=== PATIENT | male | born 1960 | race Caucasian/White ===

== ENCOUNTER → 2018-04-30 | Outpatient (CLI) | payer MEDICAID | LOC: MHCPAIN 09:37 | DX: G89.29 Other chronic pain (principal); M47.817 Spondylosis without myelopathy or radiculopathy, lumbosacral region; M54.16 Radiculopathy, lumbar region; M53.3 Sacrococcygeal disorders, not elsewhere classified | CPT/HCPCS: G0463 ==

== ENCOUNTER → 2018-05-20 | Outpatient (CLI) | payer MEDICAID | LOC: MHCPAIN 12:30 | DX: M47.817 Spondylosis without myelopathy or radiculopathy, lumbosacral region (principal); M51.37 Other intervertebral disc degeneration, lumbosacral region | CPT/HCPCS: J1040; Q9967 ==

== ENCOUNTER → 2019-06-29 | Outpatient (CLI) | payer MEDICARE, MEDICAID | LOC: COL.PUL 06-06 10:00 | DX: J44.9 Chronic obstructive pulmonary disease, unspecified (principal); Z87.891 Personal history of nicotine dependence | CPT/HCPCS: J7674 ==